=== PATIENT | female | born 1945 | race Caucasian/White ===

== ENCOUNTER 2017-11-29 11:05 | Emergency (ER) | payer MEDICARE, BC ==
[~2017-11-29] VITALS: Ht 166.4 cm; Wt 111.8 kg
[~2017-11-29 11:05] MED LIST: ALBU1AER INH; ASPI81TA11 PO; ATOR40TA49 PO; DIGE1CAP6 PO; EZET10 PO; FOLI1 PO; MAGN500T4 PO; METO50TA PO; PLAV75TA PO; POTA-267 PO; PRESCAP5 PO; PROB1TAB PO
[2017-11-29 11:14] VITALS: BP 171/80; PULSE 101; RESP 24; TEMP 98.3; O2SAT 97
[2017-11-29 11:31] VITALS: BP 156/83; PULSE 99; RESP 23; O2SAT 100
[2017-11-29] MEDS ORDERED: MORPHINE SULFATE 4 MG/ML INJ IV PUSH ONE (11:45)
[2017-11-29] MEDS ORDERED: LACTCAP8 PO (12:10)
[2017-11-29] MEDS ORDERED: FOLI800T PO (12:10)
[2017-11-29] MEDS ORDERED: MAGN500T2 PO (12:10)
[2017-11-29] MEDS ORDERED: EZET10 PO (12:10)
[2017-11-29] MEDS ORDERED: NITR1SUB3 SL (12:10)
[2017-11-29] MEDS ORDERED: FURO1TAB62 PO (12:10)
[2017-11-29] MEDS ORDERED: APIX5TAB PO (12:10)
[2017-11-29] MEDS ORDERED: POTA10CA PO (12:10)
[2017-11-29] MEDS ORDERED: ASPI81TA23 PO (12:10)
[2017-11-29] MEDS ORDERED: LIPI10TA PO (12:10)
[2017-11-29] MEDS ORDERED: ALPR.5 PO (12:10)
[2017-11-29] MEDS ORDERED: OCUVTAB PO (12:10)
[2017-11-29 12:16] LABS: AUTOMATED NEUTROPHIL # 10.4 TH/MM3 (1.8-7.7); BASOPHIL # 0.1 TH/MM3 (0-0.2); BASOPHIL % 0.8 % (0.0-2.0); EOSINOPHIL # 0.1 TH/MM3 (0-0.4); HEMATOCRIT 37.2 % (35.0-46.0); HEMOGLOBIN 12.2 GM/DL (11.6-15.3); LYMPH % 21.5 % (9.0-44.0); LYMPHOCYTE # 3.2 TH/MM3 (1.0-4.8); MEAN CELL VOLUME 86.5 FL (80.0-100.0); MEAN CORPUSCULAR HEMOGLOBIN 28.4 PG (27.0-34.0); MEAN CORPUSCULAR HGB CONC 32.8 % (32.0-36.0); MEAN PLATELET VOLUME 8.2 FL (7.0-11.0); MONO % 6.7 % (0.0-8.0); PLATELET COUNT 385 TH/MM3 (150-450); RED CELL DISTRIBUTION WIDTH 15.2 % (11.6-17.2); WHITE BLOOD COUNT 14.8 TH/MM3 (4.0-11.0)
[2017-11-29 12:25] LABS: PROTHROMBIN TIME - PATIENT 10.6 SEC (9.8-11.6)
[2017-11-29 12:45] LABS: BICARBONATE 25.2 MEQ/L (21.0-32.0); BLOOD UREA NITROGEN 6 MG/DL (7-18); CALCIUM 8.7 MG/DL (8.5-10.1); CHLORIDE 103 MEQ/L (98-107); CREATININE 0.57 MG/DL (0.50-1.00); GLOMERULAR FILTRATION RATE 105 ML/MIN (>89); GLUCOSE,RANDOM 106 MG/DL (74-106); MAGNESIUM 2.3 MG/DL (1.5-2.5); SODIUM (NA) 138 MEQ/L (136-145)
[2017-11-29 12:52] LABS: TROPONIN I LESS THAN 0.02 NG/ML (0.02-0.05)
--- NOTE | 2017-11-29 12:53 | RADRPT ---
EXAM DATE/TIME: 11/29/2017 12:16 [facility] COMPARISON: CHEST SINGLE AP, March 08, 2016, 2:45. INDICATIONS : Shortness of breath. MEDICAL HISTORY : Hypercholesterolemia. Hypertension A-fib SURGICAL HISTORY : Coronary artery stent. Cholecystectomy. Hiatal hernia. ENCOUNTER: Initial ACUITY: 3 days PAIN SCORE: 0/10 LOCATION: Bilateral chest FINDINGS: A single view of the chest demonstrates the lungs to be symmetrically aerated without evidence of mas s, infiltrate or effusion. The cardiomediastinal contours are unremarkable. Osseous structures are intact. CONCLUSION: The lungs are clear. Bean Cisneros MD on November 29, 2017 at 12:52 Board Certified Radiologist. This report was verified electronically.
[2017-11-29] MEDS ORDERED: IOHEXOL 350 MG/ML 10 ML VIAL (for RAD DIAG) IVCONTRAST ONE (13:31)
--- NOTE | 2017-11-29 14:08 | PD ---
HPI Chief Complaint: Chest Pain Time Seen by Provider: 11:34 Travel History International Travel<30 days: No Contact w/Intl Traveler<30days: No Traveled to known affect area: No History of Present Illness HPI Patient is a 71 year old female who comes in from Dr. Goldstein's office due to issues with elevated heart rate and shortness of breath. She had ablations performed last Tuesday at the [facility] and says that since then she has been short of breath. She did develop a large hematoma to her right groin, which she has been monitoring, and she says has been getting better, but is still causing her a lot of pain. She has been concerned because her pulse still seems to be rising. She says she is short of breath with any exertion. She denies any chest pain. She denies nausea or vomiting. She is on Eliquis. Severity is mild to moderate. PFSH Past Medical History Hx Anticoagulant Therapy: Yes Atrial Fibrillation: Yes Anxiety: Yes Heart Rhythm Problems: Yes (A FIB, PSVT) Cancer: No Cardiac Catheterization: Yes (ablation) Cardiovascular Problems: Yes High Cholesterol: Yes Chest Pain: Yes Diabetes: No Diminished Hearing: No Endocrine: No Gastrointestinal Disorders: Yes GERD: Yes Glaucoma: No Genitourinary: No Hepatitis: No Hiatal Hernia: Yes Hypertension: Yes Implanted Vascular Access Dvce: No Musculoskeletal: Yes Neurologic: No Psychiatric: No Reproductive: No Respiratory: Yes Integumentary: No Immunizations Current: Yes Thyroid Disease: Yes (NODULE) Menopausal: Yes Past Surgical History Abdominal Surgery: Yes (CHOLECYSTECTOMY) Cholecystectomy: Yes Gynecologic Surgery: Yes (HYSTERECTOMY) Hysterectomy: Yes (TOTAL) Thoracic Surgery: Yes Other Surgery: Yes (HYSTERECTOMY , HERNIA ) Family History Family Myocardial Infarction: Yes (FATHER) Social History Alcohol Use: No Tobacco Use: No (quit 1987) Substance Use: No Allergies-Medications (Allergen,Severity, Reaction): Coded Allergies: Sulfa (Sulfonamide Antibiotics) (Unverified Allergy, Severe, 04/13/17) hydrocodone (Unverified Allergy, Severe, Nausea/Vomiting, 04/13/17) prednisone (Unverified Allergy, Severe, IRREGULAR HEART RATE, 04/13/17) tizanidine (Unverified Allergy, Severe, Dizziness, 04/13/17) Reported Meds & Prescriptions Reported Meds & Active Scripts Active Reported Lasix (Furosemide) 20 Mg Tab 20 Mg PO M.W.F Potassium Chloride ER (Potassium Chloride) 10 Meq Cap 10 Meq PO DAILY Probiotic (Lactobacillus Acidophilus) 10 Billion Cell Cap 1 Cap PO TIDAC Ocuvite (Multiple Vitamins W/ Minerals) 1 Tab 1 Tab PO DAILY Xanax (Alprazolam) 0.5 Mg Tab 0.5 Mg PO Q4H PRN Nitroglycerin SL (Nitroglycerin) 0.4 Mg Subl 0.4 Mg SL DIRECTED PRN ONE TABLET UNDER THE TONGUE NEEDED FOR CHEST PAIN, MAY REPEAT EVERY FIVE MINUTES FOR A TOTAL OF 3 DOSES OR CALL 911 IF NO RELIEF Magnesium Oxide 500 Mg Tab 1,000 Mg PO DAILY Folic Acid 0.8 Mg Tab 800 Mcg PO DAILY Lipitor (Atorvastatin Calcium) 10 Mg Tab 10 Mg PO TID Zetia (Ezetimibe) 10 Mg Tab 10 Mg PO DAILY Aspirin EC (Aspirin) 81 Mg Tabdr 81 Mg PO DAILY Eliquis (Apixaban) 5 Mg Tab 5 Mg PO BID Review of Systems Except as stated in HPI: all other systems reviewed are Neg General / Constitutional: No: Fever, Chills HENT: No: Headaches, Lightheadedness Cardiovascular: Positive: Dyspnea on exertion, No: Chest Pain or Discomfort Gastrointestinal: No: Nausea, Vomiting Musculoskeletal: Positive: Pain Neurologic: No: Weakness, Dizziness Physical Exam Narrative GENERAL: Awake and alert, in no acute distress. SKIN: Large ecchymosis to the right groin, and various stages of healing. HEAD: Atraumatic. Normocephalic. EYES: Pupils equal and round. No scleral icterus. ENT: No nasal bleeding or discharge. Mucous membranes pink and moist. NECK: Trachea midline. No JVD. CARDIOVASCULAR: Regular rate and rhythm. No murmur appreciated. RESPIRATORY: No accessory muscle use. Clear to auscultation. Breath sounds equal bilaterally. GASTROINTESTINAL: Abdomen soft, non-tender, nondistended. MUSCULOSKELETAL: No obvious deformities. No clubbing. No cyanosis. No swelling noted to the right groin. NEUROLOGICAL: Awake and alert. No obvious cranial nerve deficits. Motor grossly within normal limits. Normal speech. PSYCHIATRIC: Appropriate mood and affect; insight and judgment normal. Data Data Last Documented VS Vital Signs Date Time Temp Pulse Resp B/P (MAP) Pulse Ox O2 Delivery O2 Flow Rate FiO2 11/29/17 11:31 99 23 156/83 (107) 100 Room Air 11/29/17 11:14 98.3 Orders Orders Electrocardiogram (11/29/17 11:17) Basic Metabolic Panel (Bmp) (11/29/17 11:17) B-Type Natriuretic Peptide (11/29/17 11:17) Ckmb (Isoenzyme) Profile (11/29/17 11:17) Complete Blood Count With Diff (11/29/17 11:17) Magnesium (Mg) (11/29/17 11:17) Prothrombin Time / Inr (Pt) (11/29/17 11:17) Act Partial Throm Time (Ptt) (11/29/17 11:17) Troponin I (11/29/17 11:17) Chest, Single Ap (11/29/17 ) Morphine Inj (Morphine Inj) (11/29/17 11:45) Ct Pulmonary Angiogram (11/29/17 13:01) Iohexol 350 Inj (Omnipaque 350 Inj) (11/29/17 13:31) Us Leg Hematoma/Pseudoaneurysm (11/29/17 ) Labs Laboratory Tests Test 11/29/17 11:35 White Blood Count 14.8 TH/MM3 Red Blood Count 4.30 MIL/MM3 Hemoglobin 12.2 GM/DL Hematocrit 37.2 % Mean Corpuscular Volume 86.5 FL Mean Corpuscular Hemoglobin 28.4 PG Mean Corpuscular Hemoglobin Concent 32.8 % Red Cell Distribution Width 15.2 % Platelet Count 385 TH/MM3 Mean Platelet Volume 8.2 FL Neutrophils (%) (Auto) 70.0 % Lymphocytes (%) (Auto) 21.5 % Monocytes (%) (Auto) 6.7 % Eosinophils (%) (Auto) 1.0 % Basophils (%) (Auto) 0.8 % Neutrophils # (Auto) 10.4 TH/MM3 Lymphocytes # (Auto) 3.2 TH/MM3 Monocytes # (Auto) 1.0 TH/MM3 Eosinophils # (Auto) 0.1 TH/MM3 Basophils # (Auto) 0.1 TH/MM3 CBC Comment DIFF FINAL Differential Comment Prothrombin Time 10.6 SEC Prothromb Time International Ratio 1.0 RATIO Activated Partial Thromboplast Time 27.5 SEC Blood Urea Nitrogen 6 MG/DL Creatinine 0.57 MG/DL Random Glucose 106 MG/DL Calcium Level 8.7 MG/DL Magnesium Level 2.3 MG/DL Sodium Level 138 MEQ/L Potassium Level 3.7 MEQ/L Chloride Level 103 MEQ/L Carbon Dioxide Level 25.2 MEQ/L Anion Gap 10 MEQ/L Estimat Glomerular Filtration Rate 105 ML/MIN Total Creatine Kinase 64 U/L Troponin I LESS THAN 0.02 NG/ML B-Type Natriuretic Peptide 58 PG/ML MDM Medical Decision Making Medical Screen Exam Complete: Yes Emergency Medical Condition: Yes Medical Record Reviewed: Yes Interpretation(s) ECG shows sinus tachycardia at a rate of 100, no ST elevation or depression, normal intervals. Differential Diagnosis CHF versus ACS versus dysrhythmia versus electrolyte abnormality versus anxiety Narrative Course Patient is a 71-year-old female who comes in due to shortness of breath on exertion. Exam shows ecchymosis to the right groin that seems to be improving per patient's . IV established, labs sent. Labs show hemoglobin of 12.2 , troponin is negative, electrolytes are within normal limits. CTA of the chest performed shows no evidence of PE, no acute abnormalities. Ultrasound of the groin performed shows seroma versus hematoma, no pseudoaneurysm. Last [address] Angiography 11/29/17 1301 Signed Impressions: Service Date/Time: Wednesday, November 29, 2017 13:28 - CONCLUSION: 1. No pulmonary embolus. 2. Trace atelectasis of both lung bases. 3. Coronary artery calcification again noted. 4. Left lobe thyroid mass appears larger. If not done recently, further evaluation with thyroid ultrasound recommended. Elbert Minor MD Lower Extremity Ultrasound 11/29/17 0000 Signed Impressions: Service Date/Time: Wednesday, November 29, 2017 15:28 - CONCLUSION: 3.8 cm fluid collection characteristic of hematoma or seroma. No pseudoaneurysm is identified Adrien Bush MD Chest X-Ray 11/29/17 0000 Signed Impressions: Service Date/Time: Wednesday, November 29, 2017 12:16 - CONCLUSION: The lungs are clear. MD Dr. Damien Guillory of vascular surgery saw the patient and will follow up with her in clinic, he is fine with her being discharged at this time. I spoke with Dr. Goldstein who is comfortable with her discharge at this time. She is advised to resume her home medications and follow up with Dr. Goldstein as scheduled. Advised to return at any time for any worsening symptoms. Diagnosis Primary Impression: Dyspnea on exertion Patient Instructions: General Instructions, Shortness of Breath (ED) Additional Instructions: Follow-up with Dr. Goldstein as scheduled. Resume your medications, but be careful it does not cause low blood pressure. Return at any time for any worsening symptoms. Disposition: 01 DISCHARGE HOME Condition: Stable Jailyn Hodges MD Nov 29, 2017 14:08
--- NOTE | 2017-11-29 14:21 | RADRPT ---
EXAM DATE/TIME: 11/29/2017 13:28 [facility] COMPARISON: CT PULMONARY ANGIOGRAM, December 07, 2014, 22:46. INDICATIONS : Dyspnea and chest pain for 4 days IV CONTRAST: 70 cc Omnipaque 350 (iohexol) IV RADIATION DOSE: 10.96 CTDIvol (mGy) MEDICAL HISTORY : Hypertension. Cardiovascular disease SURGICAL HISTORY : Hysterectomy. ENCOUNTER: Initial ACUITY: 1 day PAIN SCALE: 6/10 LOCATION: chest TECHNIQUE: Volumetric scanning of the chest was performed using a pulmonary embolism protocol MIP images were re constructed. Using automated exposure control and adjustment of the mA and/or kV according to patien t size, radiation dose was kept as low as reasonably achievable to obtain optimal diagnostic quality images. DICOM format image data is available electronically for review and comparison. Follow-up recommendations for detected pulmonary nodules are based at a minimum on nodule size and pa tient risk factors according to Fleischner Society Guidelines. FINDINGS: PULMONARY ARTERIES: No filling defects are seen in the pulmonary arteries through the segmental level. LUNGS: Trace atelectasis. PLEURAE: There is no pleural thickening or pleural effusion. MEDIASTINUM: There is good visualization of the great vessels of the middle mediastinum. No evidence of mediastin al or hilar adenopathy/mass. Right and left side coronary artery calcification again noted MUSCULOSKELETAL: Within normal limits for patient age. MISCELLANEOUS: The visualized upper abdominal organs demonstrate no acute abnormality. A mass of the left lobe of th e thyroid gland is again noted and appears larger, currently 3.2 cm CONCLUSION: 1. No pulmonary embolus. 2. Trace atelectasis of both lung bases. 3. Coronary artery calcification again noted. 4. Left lobe thyroid mass appears larger. If not done recently, further evaluation with thyroid ultra sound recommended. Elbert Minor MD on November 29, 2017 at 14:16 Board Certified Radiologist. This report was verified electronically.
--- NOTE | 2017-11-29 15:50 | RADRPT ---
EXAM DATE/TIME: 11/29/2017 15:28 [facility] COMPARISON: No previous studies available for comparison. INDICATIONS : Hematoma. MEDICAL HISTORY : Hypertension. Hypercholesterolemia. Thyroid disease. Chest pain. Hiatal hernia. SURGICAL HISTORY : Hysterectomy. Cholecystectomy. Ankle surgery. Hernia repair. ENCOUNTER: Initial ACUITY: 4-6 days PAIN SCORE: 5/10 LOCATION: Right groin. AREA EVALUATED: Right groin. FINDINGS: There is a 3.8 x 3.7 cm hypoechoic fluid collection characteristic of hematoma or seroma no pseudoane urysm is identified. CONCLUSION: 3.8 cm fluid collection characteristic of hematoma or seroma. No pseudoaneurysm is identified Adrien Bush MD on November 29, 2017 at 15:47 Board Certified Radiologist. This report was verified electronically.
--- NOTE | 2017-11-29 16:40 | PD.VS.CON ---
History of Present Illness Chief Complaint: R groin pain, possible AVF Consult Requested by: ED and Dr. Goldstein (cardiology) History of Present Illness 71 yo female with PAT/Afib who underwent catheter ablation at [facility] last week, presented with chest fluttering and R groin pain through [facility]'s office today. Came to ED. Cardiac w/u negative. Notes pain in R groin and back of thigh but not worse with ambulation. No rest pain. Groin ecchymotic but not worse. No R LE PAD symptoms. 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 Family History [place] Home Medications Reported Medications Furosemide (Lasix) 20 Mg Tab, 20 MG PO M.W.F, #60 TAB 0 Refills 11/29/17 Potassium Chloride ER (Potassium Chloride ER) 10 Meq Cap, 10 MEQ PO DAILY for Electrolyte Replacement, #30 CAP 0 Refills 11/29/17 Lactobacillus Acidophilus (Probiotic) 10 Billion Cell Cap, 1 CAP PO TIDAC for Nutritional Supplement, #90 CAP 0 Refills 11/29/17 Multiple Vitamins W/ Minerals (Ocuvite) 1 Tab, 1 TAB PO DAILY for Nutritional Supplement, TAB 0 Refills 18 Alprazolam (Xanax) 0.5 Mg Tab, 0.5 MG PO Q4H Y for ANXIETY, TAB 0 Refills 18 Nitroglycerin SL (Nitroglycerin SL) 0.4 Mg Subl, 0.4 MG SL DIRECTED Y for CHEST PAIN, #100 TAB.SL 0 Refills ONE TABLET UNDER THE TONGUE NEEDED FOR CHEST PAIN, MAY REPEAT EVERY FIVE MINUTES FOR A TOTAL OF 3 DOSES OR CALL 911 IF NO RELIEF 11/29/17 Magnesium Oxide (Magnesium Oxide) 500 Mg Tab, 1000 MG PO DAILY, TAB 0 Refills 11/29/17 Folic Acid (Folic Acid) 0.8 Mg Tab, 800 MCG PO DAILY for Nutritional Supplement , TAB 0 Refills 11/29/17 Atorvastatin (Lipitor) 10 Mg Tab, 10 MG PO TID for Cholesterol Management, #30 TAB 0 Refills 11/29/17 Ezetimibe (Zetia) 10 Mg Tab, 10 MG PO DAILY, #30 TAB 0 Refills 11/29/[address] (Aspirin EC) 81 Mg Tabdr, 81 MG PO DAILY, TAB 0 Refills 11/29/17 Apixaban (Eliquis) 5 Mg Tab, 5 MG PO BID for Blood Clot Prevention, #60 TAB 0 Refills 11/29/17 Coded Allergies: Sulfa (Sulfonamide Antibiotics) (Unverified Allergy, Severe, 04/13/17) hydrocodone (Unverified Allergy, Severe, Nausea/Vomiting, 04/13/17) prednisone (Unverified Allergy, Severe, IRREGULAR HEART RATE, 04/13/17) tizanidine (Unverified Allergy, Severe, Dizziness, 04/13/17) Review of Systems Cardiovascular: COMPLAINS OF: Palpitations Physical Exam Vitals/I&O Date Time Temp Pulse Resp B/P (MAP) Pulse Ox O2 Delivery O2 Flow Rate FiO2 11/29/17 11:31 99 23 156/83 (107) 100 Room Air 11/29/17 11:14 98.3 101 24 171/80 (110) 97 Neuro: alert, pleasant, no distress HEENT: NC/AT Neck: no JVD Heart: irreg rate Lungs: nonlabored breathing Vascular: R groin ecchymotic and minimally tender Extremities: palpable pedal pulses Laboratory Tests Test 11/29/17 11:35 White Blood Count 14.8 Red Blood Count 4.30 Hemoglobin 12.2 Hematocrit 37.2 Mean Corpuscular Volume 86.5 Mean Corpuscular Hemoglobin 28.4 Mean Corpuscular Hemoglobin Concent 32.8 Red Cell Distribution Width 15.2 Platelet Count 385 Mean Platelet Volume 8.2 Neutrophils (%) (Auto) 70.0 Lymphocytes (%) (Auto) 21.5 Monocytes (%) (Auto) 6.7 Eosinophils (%) (Auto) 1.0 Basophils (%) (Auto) 0.8 Neutrophils # (Auto) 10.4 Lymphocytes # (Auto) 3.2 Monocytes # (Auto) 1.0 Eosinophils # (Auto) 0.1 Basophils # (Auto) 0.1 CBC Comment DIFF FINAL Differential Comment Prothrombin Time 10.6 Prothromb Time International Ratio 1.0 Activated Partial Thromboplast Time 27.5 Blood Urea Nitrogen 6 Creatinine 0.57 Random Glucose 106 Calcium Level 8.7 Magnesium Level 2.3 Sodium Level 138 Potassium Level 3.7 Chloride Level 103 Carbon Dioxide Level 25.2 Anion Gap 10 Estimat Glomerular Filtration Rate 105 Total Creatine Kinase 64 Troponin I LESS THAN 0.02 B-Type Natriuretic Peptide 58 Last [address] Angiography 11/29/17 1301 Signed Impressions: Service Date/Time: Wednesday, November 29, 2017 13:28 - CONCLUSION: 1. No pulmonary embolus. 2. Trace atelectasis of both lung bases. 3. Coronary artery calcification again noted. 4. Left lobe thyroid mass appears larger. If not done recently, further evaluation with thyroid ultrasound recommended. Elbert Minor MD Lower Extremity Ultrasound 11/29/17 0000 Signed Impressions: Service Date/Time: Wednesday, November 29, 2017 15:28 - CONCLUSION: 3.8 cm fluid collection characteristic of hematoma or seroma. No pseudoaneurysm is identified Adrien Bush MD Chest X-Ray 11/29/17 0000 Signed Impressions: Service Date/Time: Wednesday, November 29, 2017 12:16 - CONCLUSION: The lungs are clear. Bean Cisneros MD Assessment and Plan Plan R groin ecchymoses. No malperfusion and no skin compromise. Duplex reviewed: seroma but no PSA. can be d/c'ed and f/u in clinic in 2 weeks. Will make arrangements and patient and her have my numbers. Long Quezada MD [facility] [employer] machine grinder [facility] - Heart and Vascular Surgery at [facility] [phone] Long Quezada MD Nov 29, 2017 16:40
--- NOTE | 2017-11-30 13:25 | EKG ---
Date Performed: 11/29/2017 Time Performed: 11:29:03 PTAGE: 71 years EKG: SINUS TACHYCARDIA WITH OCCASIONAL SUPRAVENTRICULAR PREMATURE COMPLEXES BORDERLINE LEFT AXIS DEVIATION LOW QRS VOLTAGE IN PRECORDIAL LEADS ABNORMAL RHYTHM ECG PREVIOUS TRACING : 03/08/2016 06.02 DOCTOR: Anthony Garland Interpretating Date/Time 11/30/2017 13:25:12
== END 2017-11-29 16:39 | disposition home or self-care (01) ==
LOC: NEPE 11:05
DX: R06.09 Other forms of dyspnea (principal); L76.32 Postprocedural hematoma of skin and subcutaneous tissue following other procedure; R94.31 Abnormal electrocardiogram [ECG] [EKG]; I48.91 Unspecified atrial fibrillation; F41.9 Anxiety disorder, unspecified; E78.00 Pure hypercholesterolemia, unspecified; I10 Essential (primary) hypertension; K21.9 Gastro-esophageal reflux disease without esophagitis; K44.9 Diaphragmatic hernia without obstruction or gangrene; I25.10 Atherosclerotic heart disease of native coronary artery without angina pectoris; E07.9 Disorder of thyroid, unspecified; Z79.01 Long term (current) use of anticoagulants; Z79.82 Long term (current) use of aspirin; Z98.890 Other specified postprocedural states
CPT/HCPCS: 71045; 71275; 80048; 82550; 83735; 83880; 84484; 85025; 85610; 85730; 93005; 93926; 96374; 99285; J2270; Q9967

== ENCOUNTER 2018-04-13 23:02 | Observation (INO) ==
[2018-04-14 00:21] LABS: Baso # (Auto) 0.1 th/mm3 (0.0-0.2); Baso % (Auto) 0.9 % (0.0-2.0); Eos # (Auto) 0.1 th/mm3 (0.0-0.4); Eos % (Auto) 0.8 % (0.0-4.0); Hematocrit 41.8 % (35.0-46.0); Hemoglobin 14.2 gm/dL (11.6-15.3); Lymph # (Auto) 3.4 th/mm3 (1.0-4.8); Lymph % (Auto) 31.4 % (9.0-44.0); Mean Corpuscular Hemoglobin 27.9 pg (27.0-34.0); Mono # (Auto) 0.7 th/mm3 (0.0-0.9); Mono % (Auto) 6.6 % (0.0-8.0); Neut # (Auto) 6.6 th/mm3 (1.8-7.7); Neut % (Auto) 60.3 % (16.0-70.0); Platelet Count 309 th/mm3 (150-450); Red Blood Count 5.09 mil/mm3 (4.00-5.30); Red Cell Distribution Width 15.9 % (11.6-17.2)
[2018-04-14 00:31] LABS: Activated Partial Thrombo Time 29.2 sec (24.3-30.1); Prothrombin Time 10.2 sec (9.8-11.6)
--- NOTE | 2018-04-14 00:31 | XR ---
EXAM DATE: 04/14/2018 12:21 AM EDT AGE/SEX: 72 years / Female INDICATIONS: Chest pain. CLINICAL DATA: This is the patient's subsequent encounter. Patient reports that signs and symptoms h ave been present for 1 day and indicates a pain score of 6/10. MEDICAL/SURGICAL HISTORY: None. None. COMPARISON: No prior exams available for comparison. FINDINGS: A single AP view of the chest demonstrates the lungs to be symmetrically aerated without evidence of mass, infiltrate or effusion. The cardiomediastinal contours are unremarkable. Osseous structures a re intact. CONCLUSION: No acute cardiopulmonary process. Electronically signed by: Elbert Vazquez MD 04/14/2018 12:29 AM EDT
[2018-04-14 00:36] LABS: Alanine Aminotransferase 30 U/L (10-53); Albumin 3.5 g/dL (3.4-5.0); Anion Gap 8 meq/L (5-15); Aspartate Aminotransferase 17 U/L (15-37); Blood Urea Nitrogen 19 mg/dL (7-18); Calcium 8.9 mg/dL (8.5-10.1); Carbon Dioxide 28.2 meq/L (21.0-32.0); Chloride 104 meq/L (98-107); Glomerular Filtration Rate Greater Than 89 mL/min (>89); Glucose,Random 104 mg/dL (74-106); Potassium 3.9 meq/L (3.5-5.1); Sodium 140 meq/L (136-145)
--- NOTE | 2018-04-14 00:38 | ED ---
HPI General Chief Complaint: Chest Pain Stated Complaint: Chest Pain Time Seen by Provider: 04/13/18 23:46 Source: patient and family Mode of arrival: ambulatory Limitations: no limitations History of Present Illness HPI narrative: The patient is a 72-year-old female with past medical history significant for cardiac stent (LAD) and recent ablation a few months ago for atrial flutter presenting with complaint of chest pain radiating to her neck that started around 8:30 PM last night while she was at rest. Patient stated that pain was a 7 out of 10 and it has subsided at this time however she was concerned that she may be having an PR. complaint: chest pain Complete Quality Measures for STEMI Alert Patients STEMI Alert: No Onset (ago): hour(s) (4) Duration: constant Onset: during rest Pain location: left chest Severity: severe Severity scale (1-10): 8 Quality: tightness Pain radiation: LUE and neck Relieving factors: nothing Associated symptoms: diaphoresis, dyspnea and palpitations Treatments prior to arrival chest pain: aspirin Related Data On Oral Contraceptives: No Home Medications Medication Instructions Recorded Confirmed apixaban [Eliquis] 5 mg PO TID 04/13/18 04/13/18 aspirin [Aspirin Low Dose] 81 mg PO DAILY 04/13/18 04/14/18 folic acid 1 mg PO DAILY 04/13/18 04/14/18 lactobacillus comb no.10 20,000 mmu cells PO DAILY 04/13/18 04/14/18 [Probiotic] magnesium 500 mg PO DAILY 04/13/18 04/13/18 metoprolol succinate 100 mg PO BID 04/13/18 04/13/18 ezetimibe [Zetia] 10 mg PO DAILY 04/14/18 04/14/18 furosemide [Lasix] 20 mg PO DAILY 04/14/18 04/14/18 potassium chloride 10 meq PO DAILY 04/14/18 04/14/18 Allergies Allergy/AdvReac Type Severity Reaction Status Date / Time hydrocodone Allergy Severe Nausea/Vomi Unverified 04/13/17 00:41 ting prednisone Allergy Severe IRREGULAR Unverified 04/13/17 00:41 HEART RATE Sulfa (Sulfonamide Allergy Severe Unverified 04/13/17 00:41 Antibiotics) tizanidine Allergy Severe Dizziness Unverified 04/13/17 00:41 Review of Systems ROS: all other systems reviewed are negative PMFSH Medical History Medical History H/O: hysterectomy (Acute) Heart disease (Acute) Hx of atrial flutter (Acute) Hx of fracture of ankle (Acute) Hyperlipidemia (Acute) Hypertension (Acute) Surgical History Surgical History History of heart artery stent (Acute) Hx of cholecystectomy (Acute) Social History Social History Substance History: No History of Abuse Second Hand Smoke Exposure: No Smoking Status: Former smoker How Often Do You Have a Drink Containing Alcohol: Never Recent Travel in [facility] within the Last 8 Weeks: No Recent Out of Country Travel within the Last 8 Weeks: No Immunization History Tetanus Immunization: <5 Years Hx Influenza Vaccine This Season: No Exam Narrative Exam Narrative: GENERAL: Alert and oriented in no distress SKIN: Focused skin assessment warm/dry. HEAD: Atraumatic. Normocephalic. EYES: Pupils equal and round. No scleral icterus. No injection or drainage. ENT: No nasal bleeding or discharge. Mucous membranes pink and moist. NECK: Trachea midline. No JVD. CARDIOVASCULAR: Regular rate and rhythm. No murmur appreciated. RESPIRATORY: No accessory muscle use. Clear to auscultation. Breath sounds equal bilaterally. GASTROINTESTINAL: Abdomen soft, non-tender, nondistended. Hepatic and splenic margins not palpable. MUSCULOSKELETAL: No obvious deformities. No clubbing. No cyanosis. No edema. NEUROLOGICAL: Awake and alert. No obvious cranial nerve deficits. Motor grossly within normal limits. Normal speech. PSYCHIATRIC: Appropriate mood and affect; insight and judgment normal. Course Reevaluation(s) Reevaluation #1: Post comfortable no distress no chest pain or shortness of breath at this time Time: 00:40 Reevaluation #2: Resting comfortably no distress Time: 01:14 Initial Documented Vital Signs Temperature 98.7 F 04/13/18 23:30 Pulse Rate 102 H 04/13/18 23:30 Respiratory Rate 18 04/13/18 23:30 Blood Pressure 200/104 H 04/13/18 23:30 Pulse Oximetry 97 04/13/18 23:30 Last Documented Vital Signs Temperature 98.6 F 04/14/18 08:19 Pulse Rate 70 04/14/18 08:19 Respiratory Rate 20 04/14/18 08:19 Blood Pressure 140/70 04/14/18 08:19 Pulse Oximetry 96 04/14/18 08:19 Medical Decision Making MDM Narrative Medical decision making narrative: Negative initial cardiac workup. Blood pressure improved with medications. No ST elevation on EKG and troponin within normal limits. Due to cardiac risk factors will admit for further evaluation. Medical Screen Exam Complete: Yes Emergency Medical Condition: Yes Lab Data Lab results reviewed: Yes I reviewed the patient's lab results. Result diagrams: 04/14/18 00:10 04/14/18 00:10 Lab Results 04/14/18 04/14/18 04/14/18 Range/Units 00:10 00:10 00:10 WBC 11.0 (4.0-11.0) th/mm3 RBC 5.09 (4.00-5.30) mil/mm3 Hgb 14.2 (11.6-15.3) gm/dL Hct 41.8 (35.0-46.0) % MCV 82.0 (80.0-100.0) fL MCH 27.9 (27.0-34.0) pg MCHC 34.0 (32.0-36.0) % RDW 15.9 (11.6-17.2) % Plt Count 309 (150-450) th/mm3 MPV 8.0 (7.0-11.0) fL Neut % (Auto) 60.3 (16.0-70.0) % Lymph % (Auto) 31.4 (9.0-44.0) % [place] % (Auto) 6.6 (0.0-8.0) % Eos % (Auto) 0.8 (0.0-4.0) % Baso % (Auto) 0.9 (0.0-2.0) % Neut # (Auto) 6.6 (1.8-7.7) th/mm3 Lymph # (Auto) 3.4 (1.0-4.8) th/mm3 [place] # (Auto) 0.7 (0.0-0.9) th/mm3 Eos # (Auto) 0.1 (0.0-0.4) th/mm3 Baso # (Auto) 0.1 (0.0-0.2) th/mm3 WBC Differential . Differential Comment Auto diff final PT 10.2 (9.8-11.6) sec INR 1.0 Ratio APTT 29.2 (24.3-30.1) sec Sodium 140 (136-145) meq/L Potassium 3.9 (3.5-5.1) meq/L Chloride 104 (98-107) meq/L Carbon Dioxide 28.2 (21.0-32.0) meq/L Anion Gap 8 (5-15) meq/L BUN 19 H (7-18) mg/dL Creatinine 0.64 (0.50-1.00) mg/dL Estimated GFR Greater than 89 (>89) mL/min Random Glucose 104 (74-106) mg/dL Calcium 8.9 (8.5-10.1) mg/dL Magnesium (1.5-2.5) mg/dL Total Bilirubin 0.2 (0.2-1.0) mg/dL AST 17 (15-37) U/L ALT 30 (10-53) U/L Alkaline Phosphatase 47 (45-117) U/L Total Creatine Kinase 30 (26-192) U/L Troponin I Less than 0.02 L (0.02-0.05) ng/mL Total Protein 7.3 (6.4-8.2) g/dL Albumin 3.5 (3.4-5.0) g/dL 04/14/18 04/14/18 Range/Units 03:40 07:35 WBC (4.0-11.0) th/mm3 RBC (4.00-5.30) mil/mm3 Hgb (11.6-15.3) gm/dL Hct (35.0-46.0) % MCV (80.0-100.0) fL MCH (27.0-34.0) pg MCHC (32.0-36.0) % RDW (11.6-17.2) % Plt Count (150-450) th/mm3 MPV (7.0-11.0) fL Neut % (Auto) (16.0-70.0) % Lymph % (Auto) (9.0-44.0) % [place] % (Auto) (0.0-8.0) % Eos % (Auto) (0.0-4.0) % Baso % (Auto) (0.0-2.0) % Neut # (Auto) (1.8-7.7) th/mm3 Lymph # (Auto) (1.0-4.8) th/mm3 [place] # (Auto) (0.0-0.9) th/mm3 Eos # (Auto) (0.0-0.4) th/mm3 Baso # (Auto) (0.0-0.2) th/mm3 WBC Differential Differential Comment PT (9.8-11.6) sec INR Ratio APTT (24.3-30.1) sec Sodium (136-145) meq/L Potassium (3.5-5.1) meq/L Chloride (98-107) meq/L Carbon Dioxide (21.0-32.0) meq/L Anion Gap (5-15) meq/L BUN (7-18) mg/dL Creatinine (0.50-1.00) mg/dL Estimated GFR (>89) mL/min Random Glucose (74-106) mg/dL Calcium (8.5-10.1) mg/dL Magnesium 2.1 (1.5-2.5) mg/dL Total Bilirubin (0.2-1.0) mg/dL AST (15-37) U/L ALT (10-53) U/L Alkaline Phosphatase (45-117) U/L Total Creatine Kinase 28 57 (26-192) U/L Troponin I Less than 0.02 L Less than 0.02 L (0.02-0.05) ng/mL Total Protein (6.4-8.2) g/dL Albumin (3.4-5.0) g/dL Imaging Data Radiologist's impression: Chest X-Ray 04/13/18 23:48 CONCLUSION: No acute cardiopulmonary process. ECG Data EKG Prior to Arrival: Yes Prior ECG tracings: available for review Interpretation: KG obtain a 2347 revealed normal sinus rhythm with a first- degree AV block and a heart rate of 82 bpm. GA interval prolonged at 210 ms QTC of 387. Nonspecific ST-T wave abnormalities. No STEMI. Leftward axis. Discharge Plan Discharge Disposition Patient Disposition: Discharge Home Discharge Condition Condition: Stable Discharge Order Discharge Orders: Discharge Order (Routine); Ordered 04/14/18 Ordered By: Ric Barrientos Physicians Team ED Provider: Kirk Brody Primary Care Provider: Sal Persaud Attending Provider: Blaze Garcia ED Status: Left Department Discharge Information Discharge Date/Time: 04/14/18 03:10
[2018-04-14 00:40] LABS: Alkaline Phosphatase 47 U/L (45-117); Total Protein 7.3 g/dL (6.4-8.2)
[2018-04-14 00:44] LABS: Creatine Kinase 30 U/L (26-192)
[2018-04-14] MEDS ORDERED: Sod Chloride 0.9% Inj 1,000 ML IV.CONT SCH (01:30)
[2018-04-14 04:26] LABS: Magnesium 2.1 mg/dL (1.5-2.5)
[2018-04-14 04:30] LABS: Creatine Kinase 28 U/L (26-192)
[2018-04-14 08:21] LABS: Creatine Kinase 57 U/L (26-192)
--- NOTE | 2018-04-14 09:46 | P.PNCA ---
Subjective Interval history: This 72-year-old patient has a long history of atrial arrhythmias followed at [facility] post 2 different ablation procedures. She is also followed by Dr. Church And was cathed in 2016. She presents now with a sensation of fluttering in her epigastric area that radiates up into her chest and causes some chest discomfort. She tells me that this is not unlike previous episodes except that the duration was longer. Her evaluation and plan was discussed with the physician rice drier and I am in agreement with both his documentation and the plan as outlined by chest pain center protocol. She has already ruled out for ACS and is currently stable in a sinus rhythm. She has no discomfort. I discussed her situation with her boatbuilder supervisor and since she already has an appointment scheduled for this coming Tuesday suggestion was that we allow her to discharge from the hospital and follow-up as planned in his office. The patient is actually pleased with this plan as opposed to further evaluation in the hospital. Physical Exam Vital signs: Vital Signs 04/13/18 23:30 04/13/18 23:34 04/14/18 00:34 Temperature 98.7 F Pulse Rate 102 H 75 77 Respiratory Rate 18 18 18 Blood Pressure 200/104 H 136/95 H 149/79 H Pulse Oximetry 97 99 97 04/14/18 00:39 04/14/18 00:54 04/14/18 02:18 Temperature Pulse Rate 76 72 Respiratory Rate 18 16 Blood Pressure 149/79 H 114/56 L Pulse Oximetry 99 97 97 04/14/18 03:21 04/14/18 03:55 04/14/18 04:00 Temperature 97.7 F 98.1 F Pulse Rate 74 73 Respiratory Rate 18 18 18 Blood Pressure 123/60 100/76 Pulse Oximetry 98 100 04/14/18 08:19 Temperature 98.6 F Pulse Rate 70 Respiratory Rate 20 Blood Pressure 140/70 Pulse Oximetry 96 Intake & Output 04/13/18 04/14/18 04/14/18 18:59 06:59 18:59 Intake Total 0 / 0 Balance 0 / 0 Weight 81 kg Intake: Oral 0 / 0 Other: # Voids 1 Date of Last Bowel Movement 04/13/18 04/13/18 Narrative: I am in agreement with the documentation Chest is clear to auscultation no rales wheezes or rhonchi Cardiovascular rhythm is regular sinus rhythm with no gallop rub or murmur Abdomen is soft nontender with no guarding or rebound Laboratory data, EKGs, radiographic data all reviewed Assessment and Plan - Plan Per discussion with boatbuilder supervisor discharge from hospital to follow-up Tuesday a.m. in his office Discussed Condition With: This plan was discussed with the patient and she is fully supportive - Attending Attestation I attest to the appropriateness of the evaluation and treatment received by this patient during this hospital stay
--- NOTE | 2018-04-14 09:51 | P.HPCA ---
History of Present Illness Primary Care Physician: Sal Persaud DO Chief Complaint: Chest pain and arrhythmia History of Present Illness: Female with history of CAD with stent, atrial fibrillation status post ablation following Dr. Goldstein of cardiology that presents to ED with complaint of chest pain and arrhythmia. Patient states had the same symptoms a few times a week for months if not years however they usually last 15 minutes and yesterday lasted about 4 hours. She describes a fluttering in the epigastric region and then radiates into the center of her chest with a discomfort that radiates into the left arm. States that she checks her pulse and her heart rate is using the 80s when it occurs. Stated that the arrhythmia did not feel similar to the atrial for ablation she has had in the past. States she followed up with Dr. starr about 5 weeks ago where a Holter monitor for 2 weeks. She is scheduled to see Dr. Goldstein in 3 days for follow-up regarding that. Cannot recall recent stress or heart cath, states her last cath was approximate 2 years ago. Upon reviewing records, patient had a heart cath in December [address] Gonzalez without intervention. Currently asymptomatic. Voices compliance with all her medications. Also patient has history of a thyroid mass and has been followed by Dr. Castro and states that she had a benign biopsy. Quit smoking in 1984. Prior that she smoked about one quarter pack of cigarettes a day for 12 years. Denies alcohol or illicit drugs. She lives with her . - Diagnosis (1) Chest pain (2) Palpitations Review of Systems General: Patient denies fevers, chills, and recent travel. HEENT: Patient denies headache, sore throat, difficulty swallowing. Cardiovascular: Has the chest discomfort as mentioned above. Complains of irregular heartbeat but states it is not rapid. No syncope. Denies diaphoresis. Respiratory: Denies shortness of breath or inspirational chest discomfort. Denies coughing wheezing or hemoptysis. GI: Patient denies nausea, vomiting, diarrhea, abdominal pain, bloody stools. Musculoskeletal: Patient denies joint pain or edema. Denies calf pain or edema. Neurovascular: Patient denies numbness, tingling, weakness in extremities. Denies headache. Endocrine: Denies polyuria and polydipsia. Hematologic: Denies easy bruising. Skin: Denies rash or itching. PMFSH - History History Provided By: Patient - Medical History Medical History: Medical History (Last Reviewed 04/14/18 @ 00:39 by Kirk Brody DO) H/O: hysterectomy Heart disease Hx of atrial flutter Hx of fracture of ankle Hyperlipidemia Hypertension - Surgical History Surgical History: Surgical History (Last Reviewed 04/14/18 @ 00:39 by Kirk Brody DO) History of heart artery stent Hx of cholecystectomy - Tobacco History Second Hand Smoke Exposure: No Smoking Status: Former smoker - Alcohol History How Often Do You Have a Drink Containing Alcohol: Never - Substance Use History Substance History: No History of Abuse - Travel History Recent Travel in the [place] Within the Last 8 Weeks: No Recent Travel Out of the Country Within the Last 8 Weeks: No - Immunization History Tetanus Immunization: <5 Years Hx Influenza Vaccine This Season: No Medications and Allergies Active Medications: Active Medications Sodium Chloride (Ns Inj) 1,000 mls @ 100 mls/hr IV.CONT .Q10H HALLEY Last Admin: 04/14/18 02:18 Dose: 100 mls/hr Nitroglycerin (Nitrostat Sl) 0.4 mg SL Q5M PRN PRN Reason: CHEST PAIN Sodium Chloride (Ns Flush) 2 ml IV.FLUSH BID HALLEY Sodium Chloride (Ns Flush) 2 ml IV.FLUSH PRN PRN PRN Reason: FLUSH AFTER USING IV ACCESS Allergies Allergy/AdvReac Type Severity Reaction Status Date / Time hydrocodone Allergy Severe Nausea/Vomi Unverified 04/13/17 00:41 ting prednisone Allergy Severe IRREGULAR Unverified 04/13/17 00:41 HEART RATE Sulfa (Sulfonamide Allergy Severe Unverified 04/13/17 00:41 Antibiotics) tizanidine Allergy Severe Dizziness Unverified 04/13/17 00:41 Home Medications Medication Instructions Recorded Confirmed Type apixaban [Eliquis] 5 mg PO TID 04/13/18 04/13/18 History aspirin [Aspirin Low Dose] 81 mg PO DAILY 04/13/18 04/14/18 History folic acid 1 mg PO DAILY 04/13/18 04/14/18 History lactobacillus comb no.10 20,000 mmu cells PO DAILY 04/13/18 04/14/18 History [Probiotic] magnesium 500 mg PO DAILY 04/13/18 04/13/18 History metoprolol succinate 100 mg PO BID 04/13/18 04/13/18 History ezetimibe [Zetia] 10 mg PO DAILY 04/14/18 04/14/18 History furosemide [Lasix] 20 mg PO DAILY 04/14/18 04/14/18 History potassium chloride 10 meq PO DAILY 04/14/18 04/14/18 History Exam Vital signs: Vital Signs 04/13/18 23:30 04/13/18 23:34 04/14/18 00:34 Temperature 98.7 F Pulse Rate 102 H 75 77 Respiratory Rate 18 18 18 Blood Pressure 200/104 H 136/95 H 149/79 H Pulse Oximetry 97 99 97 04/14/18 00:39 04/14/18 00:54 04/14/18 02:18 Temperature Pulse Rate 76 72 Respiratory Rate 18 16 Blood Pressure 149/79 H 114/56 L Pulse Oximetry 99 97 97 04/14/18 03:21 04/14/18 03:55 04/14/18 04:00 Temperature 97.7 F 98.1 F Pulse Rate 74 73 Respiratory Rate 18 Blood Pressure 123/60 100/76 Pulse Oximetry 98 100 04/14/18 08:19 Temperature 98.6 F Pulse Rate 70 Respiratory Rate 20 Blood Pressure 140/70 Pulse Oximetry 96 Intake & Output 04/13/18 04/14/18 04/14/18 18:59 06:59 18:59 Intake Total 0 / 0 Balance 0 / 0 Weight 81 kg Intake: Oral 0 / 0 Other: # Voids 1 Date of Last Bowel Movement 04/13/18 04/13/18 Narrative: GENERAL: This is a well-nourished, well-developed patient, in no apparent distress. Patient speaks in clear complete sentences. Patient is pleasant. HEENT: Head is atraumatic and normocephalic. Neck is supple without lymphadenopathy and trachea is midline. No JVD or carotid bruits. CARDIOVASCULAR: Regular rate and rhythm without murmurs, gallops, or rubs. RESPIRATORY: Clear to auscultation. Breath sounds equal bilaterally. No wheezes , rales, or rhonchi. Chest wall is nontender. No use of accessory muscles. GASTROINTESTINAL: Abdomen is nontender, nondistended. Abdomen soft. No obvious pulsatile mass or bruit. No CVA tenderness. Strong femoral pulses bilaterally. Normal bowel sounds in all quadrants. MUSCULOSKELETAL: Patient is moving upper and lower extremities freely. No calf tenderness or edema, no Homans sign. Strong pulses in upper and lower extremities. NEUROLOGICAL: Patient is alert and oriented. Cranial nerves 2-12 are grossly intact. No focal deficits and speech is clear. SKIN: No rash and turgor is normal. Results 04/14/18 00:10 04/14/18 00:10 Cardiac Enzymes 04/14/18 04/14/18 04/14/18 Range/Units 00:10 03:40 07:35 AST 17 (15-37) U/L Troponin I Less than 0.02 L Less than 0.02 L Less than 0.02 L (0.02-0.05) ng/mL Coagulation 04/14/18 Range/Units 00:10 PT 10.2 (9.8-11.6) sec APTT 29.2 (24.3-30.1) sec CBC 04/14/18 Range/Units 00:10 WBC 11.0 (4.0-11.0) th/mm3 RBC 5.09 (4.00-5.30) mil/mm3 Hgb 14.2 (11.6-15.3) gm/dL Hct 41.8 (35.0-46.0) % Plt Count 309 (150-450) th/mm3 Neut # (Auto) 6.6 (1.8-7.7) th/mm3 Lymph # (Auto) 3.4 (1.0-4.8) th/mm3 [place] # (Auto) 0.7 (0.0-0.9) th/mm3 Eos # (Auto) 0.1 (0.0-0.4) th/mm3 Baso # (Auto) 0.1 (0.0-0.2) th/mm3 Comprehensive Metabolic Panel 04/14/18 Range/Units 00:10 Sodium 140 (136-145) meq/L Potassium 3.9 (3.5-5.1) meq/L Chloride 104 (98-107) meq/L Carbon Dioxide 28.2 (21.0-32.0) meq/L BUN 19 H (7-18) mg/dL Creatinine 0.64 (0.50-1.00) mg/dL Calcium 8.9 (8.5-10.1) mg/dL AST 17 (15-37) U/L ALT 30 (10-53) U/L Alkaline Phosphatase 47 (45-117) U/L Total Protein 7.3 (6.4-8.2) g/dL Albumin 3.5 (3.4-5.0) g/dL Intake and Output 04/13/18 04/14/18 04/14/18 22:59 06:59 14:59 Intake Total 0 / 0 Balance 0 / 0 Intake: Oral 0 / 0 Other: # Voids 1 Date of Last Bowel Movement 04/13/18 04/13/18 Weight 81 kg EKG interpretations - EKG EKG shows: sinus rhythm (EKGs have been sinus rhythm without significant ST segment depressions or elevations.) Caprini VTE Risk Assessment Caprini VTE Risk Assessment: Moderate/High Risk (score >= 2) Caprini Risk Assessment Model: Point Value = 1 Point Value = 2 Point Value = 3 Point Value = 5 Age 41-60 Minor surgery BMI > 25 kg/m2 Swollen legs Varicose veins or History of unexplained or recurrent spontaneous Oral contraceptives or hormone replacement Sepsis (< 1 month) Serious lung disease, including pneumonia (< 1 month) Abnormal pulmonary function Acute myocardial infarction Congestive heart failure (< 1 month) History of inflammatory bowel disease Medical patient at bed rest Age 61-74 Arthroscopic surgery Major open surgery (> 45 min) Laparoscopic surgery (> 45 min) Malignancy Confined to bed (> 72 hours) Immobilizing plaster cast Central venous access Age >= 75 History of VTE Family history of VTE Factor V Leiden Prothrombin [id number] Lupus anticoagulant Anticardiolipin antibodies Elevated serum homocysteine Heparin-induced thrombocytopenia Other congenital or acquired thrombophilia Stroke (< 1 month) Elective arthroplasty Hip, pelvis, or leg fracture Acute spinal cord injury (< 1 month) Prophylaxis Regimen: Total Risk Factor Score Risk Level Prophylaxis Regimen 0-1 Low Early ambulation 2 Moderate Order ONE of the following: *Sequential Compression Device (SCD) *Heparin 5000 units SQ BID 3-4 Higher Order ONE of the following medications: *Heparin 5000 units SQ TID *Enoxaparin/Lovenox 40 mg SQ daily (WT < 150 kg, CrCl > 30 mL/min) *Enoxaparin/Lovenox 30 mg SQ daily (WT < 150 kg, CrCl > 10-29 mL/min) *Enoxaparin/Lovenox 30 mg SQ BID (WT < 150 kg, CrCl > 30 mL/min) AND/OR *Sequential Compression Device (SCD) 5 or more Highest Order ONE of the following medications: *Heparin 5000 units SQ TID (Preferred with Epidurals) *Enoxaparin/Lovenox 40 mg SQ daily (WT < 150 kg, CrCl > 30 mL/min) *Enoxaparin/Lovenox 30 mg SQ daily (WT < 150 kg, CrCl > 10-29 mL/min) *Enoxaparin/Lovenox 30 mg SQ BID (WT < 150 kg, CrCl > 30 mL/min) AND *Sequential Compression Device (SCD) Assessment and Plan - Assessment (1) Chest pain Code(s): R07.9 - Chest pain, unspecified Status: Acute (2) Palpitations Code(s): R00.2 - Palpitations Status: Acute - Plan Chest pain: Patient has had serial cardiac enzymes and EKGs for ruling out purposes. She was seen by Dr. Garcia. Dr. Garcia spoke with Dr. Dominick Denise, patient will be discharged at this time and will keep her appointment on Tuesday follow-up. Return to ED for interval issues. H&P: Quality - VTE Deep Vein Thrombosis/Pulmonary Embolism Present on Admission: No
[2018-04-14] MEDS ORDERED: Ezetimibe 10 MG Tablet PO SCH (11:00)
[2018-04-14] MEDS ORDERED: Furosemide 20 MG Tablet PO SCH (11:00)
[2018-04-14] MEDS ORDERED: Folic Acid 1 MG Tablet PO SCH (11:00)
--- NOTE | 2018-04-14 11:11 | ECG ---
Date Performed: 04/14/2018 Time Performed: 06:33:38 PTAGE: 72 years EKG: Sinus rhythm WITH FIRST DEGREE AV BLOCK ABNORMAL ECG No significant change PREVIOUS TRACING : 04/14/2018 04.48 DOCTOR: Blaze Garcia Interpretating Date/Time 04/14/2018 11:10:05
--- NOTE | 2018-04-14 11:11 | ECG ---
Date Performed: 04/14/2018 Time Performed: 04:48:31 PTAGE: 72 years EKG: Sinus rhythm WITH FIRST DEGREE AV BLOCK ABNORMAL ECG No significant change PREVIOUS TRACING : 11/29/2017 11.29 DOCTOR: Blaze Garcia Interpretating Date/Time 04/14/2018 11:10:21
--- NOTE | 2018-04-14 11:13 | ECG ---
Date Performed: 04/13/2018 Time Performed: 23:47:46 PTAGE: 72 years EKG: Sinus rhythm WITH FIRST DEGREE AV BLOCK LOW QRS VOLTAGE IN PRECORDIAL LEADS ABNORMAL ECG No significant change NO PREVIOUS TRACING DOCTOR: Blaze Garcia Interpretating Date/Time 04/14/2018 11:11:45
== END 2018-04-14 11:38 | disposition home or self-care (01) ==
LOC: NEPC 23:02 → NEPGCP 23:02 → NEDA 23:02 → NEPGCP 04-14 02:56
PROVIDERS: ADMIT Internal Medicine Interventional Cardiology; ATTEND Internal Medicine Interventional Cardiology
DX: Z79.01 Long term (current) use of anticoagulants; I10 Essential (primary) hypertension; Z79.82 Long term (current) use of aspirin; I48.91 Unspecified atrial fibrillation; R07.89 Other chest pain; Z87.891 Personal history of nicotine dependence; Z88.2 Allergy status to sulfonamides; Z90.49 Acquired absence of other specified parts of digestive tract; Z90.710 Acquired absence of both cervix and uterus; E78.5 Hyperlipidemia, unspecified; I25.10 Atherosclerotic heart disease of native coronary artery without angina pectoris; Z95.5 Presence of coronary angioplasty implant and graft; Z88.8 Allergy status to other drugs, medicaments and biological substances